=== PATIENT | female | born 1990 | race American Indian/Alaskan Native ===

== ENCOUNTER 2020-11-04 16:09 | Outpatient (CLI) | payer OTHER ==
[2020-11-04 17:08] LABS: Alanine Aminotransferase 14 units/L (7-56); Albumin 4.5 g/dL (3.9-5); BUN/Creatinine Ratio 14; Blood Urea Nitrogen 13 mg/dL (7-17); Calcium 9.6 mg/dL (8.4-10.2); Hemolysis Index 1
[2020-11-04 17:37] LABS: Hematocrit 34.3 % (30.3-42.9); Hemoglobin 11.3 gm/dl (10.1-14.3); Mean Corpuscular HGB Conc 33 % (30-34); Mean Corpuscular Volume 75 fl (79-97); Platelet Count 258 K/mm3 (140-440); Red Blood Count 4.57 M/mm3 (3.65-5.03)
[2020-11-04 18:34] LABS: Erythrocyte Sedimentation Rate 18 mm/Hr (0-20)
[2020-11-04 19:07] LABS: Anisocytosis 1+; Hypochromasia 1+; Large Platelets Few; Platelet Estimate Consistent w Auto; Total Cells Counted 100
[2020-11-08 12:34] LABS: Vitamin D, 25-OH, D2 <4 ng/mL
[2020-11-09 14:44] LABS: ANA Screen, IFA Negative (Negative)
[2020-11-10 22:47] LABS: Albumin 4.1 g/dL (3.8-4.8); Gamma Globulin 1.4 g/dL (0.8-1.7)
[2020-12-02 08:12] LABS: HIV-1 Antibody Differentiation SEE SCANNED RESULT; HIV-2 Antibody Differentiation SEE SCANNED RESULT
== END 2020-11-04 16:10 | disposition home or self-care (01) ==
LOC: LAB 16:09
PROVIDERS: ATTEND Specialist
DX: G35 Multiple sclerosis (principal)
CPT/HCPCS: 36415; 80053; 82306; 82607; 83036; 83921; 84165; 85007; 85025; 85652; 86038; 86225; 86235; 86334; 86431; 86592; 86689